=== PATIENT | male | born 1985 | race Caucasian/White ===

== ENCOUNTER 2017-09-02 01:47 | Inpatient (IN) ==
[2017-09-02] MEDS ORDERED: Naloxone 0.4 MG/ML INJ IVP PRN (08:12)
[2017-09-02 08:44] LABS: Basophils % 0.5 %; Eosinophils # 0.2 K/mcL (0.0-0.6); Eosinophils % 2.6 %; Hematocrit 44.1 % (37.5-50.1); Hemoglobin 15.1 g/dL (12.9-16.9); Immature Granulocytes % 0.3 % (0-4); Lymphocytes # 1.3 K/mcL (0.6-4.6); Lymphocytes % 16.2 %; Mean Corpuscular HGB Conc 34.2 g/dL (31.6-35.5); Mean Corpuscular Hemoglobin 31.2 pg (28.0-33.3); Mean Corpuscular Volume 91.1 fL (83.0-100.0); Mean Platelet Volume 10.4 fL (9.4-12.4); Monocytes # 0.6 K/mcL (0.0-1.3); Monocytes % 8.1 %; Neutrophils # 5.7 K/mcL (1.6-8.9); Platelet Count 211 K/mcL (140-400); Red Blood Count 4.84 M/mcL (4.19-5.50); Red Cell Distribution Width 12.2 % (11.5-14.5); Segmented Neutrophils % 72.3 %
[2017-09-02] MEDS ORDERED: Metoprolol XL (24 HR) Succ 50 MG TAB.ER.24H PO SCH (09:00)
[2017-09-02 09:06] LABS: BUN/Creatinine Ratio 15 (6-26); Blood Urea Nitrogen 12 mg/dL (6-20); Calcium 9.1 mg/dL (8.6-10.3); Carbon Dioxide 19 mEq/L (23-29); Chloride 111 mEq/L (98-107); Glucose 121 mg/dL (70-105); Magnesium 2.1 mg/dL (1.6-2.6); Osmolality,Calculated 285 (280-300); Phosphorous 3.2 mg/dL (2.7-4.5); Potassium 4.1 mEq/L (3.5-5.1); Sodium 137 mEq/L (136-145); eGFR For African Americans > 60 (> 60); eGFR For Non-African Americans > 60 (> 60)
--- NOTE | 2017-09-02 09:18 | Internal Med History&Physical ---
Date of Encounter: 09/02/17 Time of Encounter: 09:00 Internal Medicine - H&P: HPI Chief complaint: Purulent drainage from back wound Admitted From: Hospital to Hospital Transfer History of present illness: Mr. Lopez is a 32 year old male who presents with complaints of left lower back pain with wound and purulent drainage. Patient said he had a "fatty tumor" removed from his back about [address] Guzman at [facility]. He was doing well until about 3 days ago when he began to have pain at the surgical site with pus draining from the site as well and that's why he went to the ER at [place]. He denies any fevers any chills or any other acute symptoms. Past Med Surg Social Fam HX - Past Medical History Medical history: hypertension Additional medical history: SMOKER. [id number] SYNDROME Psychiatric history: no psych history - Past Surgical History Surgical History: other Additional surgical history: fatty cysts removed from back x2 - Social History Smoking Status: Current every day smoker Packs per day: 1.5 Smokeless Tobacco Status: No Alcohol use: occasionally Drug use: marijuana - Family History Mother History Unknown: Yes Living Status: Still Living Father Living Status: Cause of : Heart failure Internal Medicine - H&P: Meds Metoprolol Succinate [Toprol Xl] 50 mg PO DAILY 07/31/17 [History] Adhesive Tape [Paper Tape] 1 each TP DAILY #1 tape 09/02/17 [Rx] Polyhexam Biguan/Gauze Bandage [Curity Amd 4"X4" Non-Woven] 2 each TP DAILY #60 sponge 09/02/17 [Rx] Polyhexam Biguan/Gauze Bandage [Curity Amd Packing Strips] 1 each TP DAILY #1 bottle 09/02/17 [Rx] Sulfamethoxazole/Trimeth DS [Bactrim DS] 1 each PO BID #14 tablet 09/02/17 [Rx] 3 Allergy/AdvReac Type Severity Reaction Status Date / Time No Known Allergies Allergy Verified 07/31/17 09:07 All Systems PM: A 10-system review of systems was performed and is negative for pertinent findings except as documented above in the HPI. - Constitutional Constitutional: no chills, no fever(s), no night sweats - EENT Eyes: no change in vision, no discharge, no pain, no photophobia Ears: no ear discharge, no ear pain, no tinnitus Nose, mouth and throat: no dysphagia, no nasal discharge, no neck pain, no sore throat - Cardiovascular Cardiovascular ROS IM: no chest pain, no diaphoresis, no dyspnea, no lightheadedness, no palpitations, no syncope - Respiratory Respiratory: no cough, no dyspnea, no wheezing, no excessive phlegm production - Gastrointestinal Gastrointestinal: no abdominal pain, no diarrhea, no hematemesis, no hematochezia, no melena, no nausea, no vomiting - Musculoskeletal Musculoskeletal ROS IM: no numbness, no tingling - Integumentary Additional comments: pus drainage from back wound - Neurological Neurological ROS: no confusion, no convulsions, no focal weakness, no numbness, no tingling, no tremor(s) - Hematologic/Lymphatic Hematologic/Lymphatic: no easy bruising - Constitutional Vitals: Temp Pulse Resp BP Pulse Ox 98.3 F 70 16 129/64 96 09/02/17 07:31 09/02/17 07:31 09/02/17 07:31 09/02/17 07:31 09/02/17 07:31 - Head Head exam: Present: atraumatic, normocephalic - Eye Eye exam: Present: PERRL, conjuntiva pink, sclera anicteric Pupils: Present: PERRL - Neck Neck exam general surgery: Present: supple, trachea midline. Absent: lymphadenopathy - Respiratory Respiratory exam: Present: CTAB. Absent: accessory muscle use, rales, rhonchi, wheezes - Cardiovascular Cardiovascular exam: Present: RRR, +S1, +S2. Absent: diastolic murmur, gallop, rubs, systolic murmur - GI/Abdominal GI/Abdominal exam: Present: normal bowel sounds, soft, no peritoneal signs. Absent: distended, tenderness - Extremities Exam Extremities exam: Present: warm, radial pulses palpable and symmetrical. Absent : calf tenderness, cyanotic, pedal edema - Back Exam Additional comments: tenderness in left lower back with wound drainage - Neurological Exam Neurological exam: Present: CN II-XII intact, oriented X3, no focal deficits. Absent: pronater drift, facial droop, speech deficit - Skin Skin exam: Present: dry, intact Internal Med - H&P Results - Labs CBC & Chem 7: 09/02/17 08:33 09/02/17 08:33 Labs: Short CBC 09/02/17 Range/Units 08:33 WBC 7.9 (4.3-11.1) K/mcL Hgb 15.1 (12.9-16.9) g/dL Hct 44.1 (37.5-50.1) % Plt Count 211 (140-400) K/mcL Neutrophils # 5.7 (1.6-8.9) K/mcL BMP 09/02/17 08:33 Sodium 137 Potassium 4.1 Chloride 111 H Carbon Dioxide 19 L BUN 12 Creatinine 0.78 Glucose 121 H Calcium 9.1 - Assessment and plan (1) Wound abscess Status: Acute Assessment and plan: s/p fatty tumor removal by surgery. Start on zosyn. Surgery consulted for possible incision and drainage Qualifiers: Encounter type: initial encounter Qualified Code(s): T81.4XXA - Infection following a procedure, initial encounter (2) Hypertension Status: Acute Assessment and plan: Continue home metoprolol Qualifiers: Hypertension type: essential hypertension Qualified Code(s): I10 - Essential (primary) hypertension (3) DVT prophylaxis Status: Acute Assessment and plan: heparin sc - Time Spent With Patient Total time spent is greater than 50% in coordination of care (as documented) at patient's floor/unit and/or counseling patient:
[2017-09-02 11:28] VITALS: BP 135/91
--- NOTE | 2017-09-02 11:46 | General Surgery Consult Note ---
Date of Encounter: 09/02/17 Time of Encounter: 11:39 Assessment and Plan (1) Wound dehiscence Current Visit: Yes Status: Acute His WBC is within normal limits. There is minimal amount of drainage from the surgical site. I did pack the area with 1/4 plain gauze. He will need [facility] for wound packing. OK to d/c from a surgical perspective with [facility] for daily dressing changes. Will cover him with ATBX for cellulitis. He can follow-up with surgery in one week. Surgery will sign off at this time. Thank you for allowing us to participate in Mr Lopez's care. History of Present Illness Consult date: 09/02/17 (Dr. Phil Guzman) Reason for consult: wound care Requesting physician: Jessica Laird History of present illness: Frantz is a 32-year-old male with a history of left lower flank lipoma excision by Dr. Guzman in July 2017. 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 He did not keep his follow-up appointment. He reports that approximately one week after the surgery he began having some swelling of the site but denied discomfort. He states over the last week he began feeling some discomfort at the site, increased redness, and had drainage of cloudy material yesterday when he "squeezed it." He denies fever, chills, abdominal pain, nausea, vomiting, or any other changes in the site. He went to [place] emergency department and was subsequently sent to [place] for evaluation. He reports a past medical history of hypertension, smoking, Alexander Parkinson White syndrome, marijuana use, and occasional alcohol use. Past Med Surg Social Fam HX - Past Medical History Medical history: hypertension Additional medical history: SMOKER. [id number] SYNDROME Psychiatric history: no psych history - Past Surgical History Surgical History: other Additional surgical history: fatty cysts removed from back x2 - Social History Smoking Status: Current every day smoker Packs per day: 1.5 Smokeless Tobacco Status: No Alcohol use: occasionally Drug use: marijuana - Family History Mother History Unknown: Yes Living Status: Still Living Father Living Status: Cause of : Heart failure Medications and Allergies Metoprolol Succinate [Toprol Xl] 50 mg PO DAILY 07/31/17 [History] Adhesive Tape [Paper Tape] 1 each TP DAILY #1 tape 09/02/17 [Rx] Polyhexam Biguan/Gauze Bandage [Curity Amd 4"X4" Non-Woven] 2 each TP DAILY #60 sponge 09/02/17 [Rx] Polyhexam Biguan/Gauze Bandage [Curity Amd Packing Strips] 1 each TP DAILY #1 bottle 09/02/17 [Rx] Sulfamethoxazole/Trimeth DS [Bactrim DS] 1 each PO BID #14 tablet 09/02/17 [Rx] 3 Allergy/AdvReac Type Severity Reaction Status Date / Time No Known Allergies Allergy Verified 07/31/17 09:07 Review of Systems All systems PM: reviewed and no additional remarkable complaints except as stated All systems PM: The remainder of the systems were reviewed and are negative General Surgery Exam Initial Vital Signs Temp Pulse Resp Pulse Ox 98.0 F 69 16 96 09/02/17 04:13 09/02/17 04:13 09/02/17 04:13 09/02/17 04:13 VITAL SIGNS: Reviewed. See [facility] GENERAL: In no apparent distress. HEENT: Normocephalic, atraumatic, pupils are equal and reactive, extraocular motions intact, oropharynx is pink and moist, there is no neck adenopathy or JVD noted. CHEST/RESPIRATORY: The thorax is free from signs of trauma. Lung sounds: clear to auscultation, normal respiratory effort CARDIAC: Regular rate and rhythm. Normal S1 and S2, without murmurs, gallops, or rubs. VASCULAR: No Edema. 2+ peripheral pulses. ABDOMEN: Left posterior flank: small amount of erythema noted along the margins of the incision. There is no surrounding induration. There is one small area that is open approximately the size of a Q-tip. A small amount of thick cloudy material is present. The area was packed with 1/4 inch playing gauze. Covered with a dry dressing. MUSCULOSKELETAL: Good range of motion of all major joints. Extremities without clubbing, cyanosis or edema. NEUROLOGIC EXAM: Alert and oriented x 3. Speech normal. Follows commands. PSYCHIATRIC: Mood normal. SKIN: No rash or lesions. Exam Initial Vital Signs Temp Pulse Resp Pulse Ox 98.0 F 69 16 96 09/02/17 04:13 09/02/17 04:13 09/02/17 04:13 09/02/17 04:13 Results - Labs 09/02/17 08:33 09/02/17 08:33 Abnormal lab results Chloride 111 mEq/L (98-107) H 09/02/17 08:33 Carbon Dioxide 19 mEq/L (23-29) L 09/02/17 08:33 Glucose 121 mg/dL (70-105) H 09/02/17 08:33 Diabetes panel 09/02/17 Range/Units 08:33 Sodium 137 (136-145) mEq/L Potassium 4.1 (3.5-5.1) mEq/L Chloride 111 H (98-107) mEq/L Carbon Dioxide 19 L (23-29) mEq/L BUN 12 (6-20) mg/dL Creatinine 0.78 (0.70-1.30) mg/dL Glucose 121 H (70-105) mg/dL Calcium 9.1 (8.6-10.3) mg/dL Calcium panel 09/02/17 Range/Units 08:33 Calcium 9.1 (8.6-10.3) mg/dL Phosphorus 3.2 (2.7-4.5) mg/dL Pituitary panel 09/02/17 Range/Units 08:33 Sodium 137 (136-145) mEq/L Potassium 4.1 (3.5-5.1) mEq/L Chloride 111 H (98-107) mEq/L Carbon Dioxide 19 L (23-29) mEq/L BUN 12 (6-20) mg/dL Creatinine 0.78 (0.70-1.30) mg/dL Glucose 121 H (70-105) mg/dL Calcium 9.1 (8.6-10.3) mg/dL Adrenal panel 09/02/17 Range/Units 08:33 Sodium 137 (136-145) mEq/L Potassium 4.1 (3.5-5.1) mEq/L Chloride 111 H (98-107) mEq/L Carbon Dioxide 19 L (23-29) mEq/L BUN 12 (6-20) mg/dL Creatinine 0.78 (0.70-1.30) mg/dL Glucose 121 H (70-105) mg/dL Calcium 9.1 (8.6-10.3) mg/dL All other labs normal. Consult Discharge Plan - Plan Additional Instructions: wound care: remove dressing and packing. Wash with antibacterial soap. Repack with 1/4 inch plain gauze for wicking purposes. Tape to secure. May stop packing when less than 1 cm needed or drainage has stopped. Referrals: Shelli Alexander, [facility] [Primary Care Provider] - Prescriptions: Adhesive Tape [Paper Tape] 1 each TP DAILY #1 tape Polyhexam Biguan/Gauze Bandage [Curity Amd 4"X4" Non-Woven] 2 each TP DAILY #60 sponge Polyhexam Biguan/Gauze Bandage [Curity Amd Packing Strips] 1 each TP DAILY #1 bottle Sulfamethoxazole/Trimeth DS [Bactrim DS] 1 each PO BID #14 tablet
--- NOTE | 2017-09-02 14:43 | Discharge Summary ---
Orders not resulted at time of discharge: Pending orders 09/02/17 08:19 Culture,Wound [RM] Routine 09/02/17 08:33 Culture,Blood [BC] Routine 09/03/17 04:00 Basic Metabolic Panel AM 0400 Complete Blood Count [HEME] AM 0400 Magnesium AM 0400 Phosphorous AM 0400 Date of Encounter: 09/02/17 Time of Encounter: 14:20 - Discharge Diagnosis (1) Wound abscess Priority: Primary Status: Acute Assessment and Plan: 32 year old male who presents with complaints of left lower back pain with wound and purulent drainage. Patient said he had a "fatty tumor" removed from his back about [address] Guzman at [facility]. He was doing well until about 3 days ago when he began to have pain at the surgical site with pus draining from the site as well and that's why he went to the ER at [place]. He denied any fevers any chills or any other acute symptoms He was seen by general surgery who did some packing and prescribed him oral antibiotics for the cellulitis. He was therefore discharged in a stable condition and will follow up outpatient with surgery Qualifiers: Encounter type: initial encounter Qualified Code(s): T81.4XXA - Infection following a procedure, initial encounter (2) Hypertension Priority: Secondary Status: Acute Qualifiers: Qualified Code(s): I10 - Essential (primary) hypertension (3) DVT prophylaxis Priority: Secondary Status: Acute Hospital course: Mr. Lopez is a 32 year old male - Time Spent with Patient Total time spent providing and/or coordinating discharge services: - Discharge Medications Prescriptions: Adhesive Tape [Paper Tape] 1 each TP DAILY #1 tape Polyhexam Biguan/Gauze Bandage [Curity Amd 4"X4" Non-Woven] 2 each TP DAILY #60 sponge Polyhexam Biguan/Gauze Bandage [Curity Amd Packing Strips] 1 each TP DAILY #1 bottle Sulfamethoxazole/Trimeth DS [Bactrim DS] 1 each PO BID #14 tablet Home Medications: Metoprolol Succinate [Toprol Xl] 50 mg PO DAILY 07/31/17 [History] Adhesive Tape [Paper Tape] 1 each TP DAILY #1 tape 09/02/17 [Rx] Polyhexam Biguan/Gauze Bandage [Curity Amd 4"X4" Non-Woven] 2 each TP DAILY #60 sponge 09/02/17 [Rx] Polyhexam Biguan/Gauze Bandage [Curity Amd Packing Strips] 1 each TP DAILY #1 bottle 09/02/17 [Rx] Sulfamethoxazole/Trimeth DS [Bactrim DS] 1 each PO BID #14 tablet 09/02/17 [Rx] Allergies/Adverse Reactions: 3 Allergy/AdvReac Type Severity Reaction Status Date / Time No Known Allergies Allergy Verified 07/31/17 09:07 Date of admission: 09/02/17 08:13 Primary care physician: Shelli Alexander CNP Consults: 09/02/17 08:18 Consult to Surgery [CONS] Routine Consulting Provider: Surgery [facility] Reason for Consult: infected wound s/p tumor removal Call Completed: Yes 09/02/17 11:39 Consult to Material Scheduler [CONS] Stat Reason for SW Consult: home health for packing - Constitutional Vitals: Temp Pulse Resp BP Pulse Ox 98.3 F 66 16 135/91 98 09/02/17 11:25 09/02/17 11:25 09/02/17 11:25 09/02/17 11:25 09/02/17 11:25 - Patient Status Disposition: Home, Self-Care - Discharge Instructions Follow Up With: Shelli Alexander CNP [Primary Care Provider] - Yoselyn Carpio CNP [Advanced Practice Nurse] - 09/09/17 3:30 pm Additional Instructions: wound care: remove dressing and packing. Wash with antibacterial soap. Repack with 1/4 inch plain gauze for wicking purposes. Tape to secure. May stop packing when less than 1 cm needed or drainage has stopped.
--- NOTE | 2017-09-02 14:44 | Physician Discharge Referral ---
Home Health/Hosp Referral Info Transfer to: Home Health - Diagnosis (1) Wound abscess Priority: Primary Status: Acute (2) Hypertension Status: Acute (3) DVT prophylaxis Status: Acute - Respiratory Orders Smoking Cessation: Smoking cessation has been advised. For more information, call the [place] Tobacco Quit Line at 2-160-TGEM-NOW. - Transfer Medications Prescriptions: Adhesive Tape [Paper Tape] 1 each TP DAILY #1 tape Polyhexam Biguan/Gauze Bandage [Curity Amd 4"X4" Non-Woven] 2 each TP DAILY #60 sponge Polyhexam Biguan/Gauze Bandage [Curity Amd Packing Strips] 1 each TP DAILY #1 bottle Sulfamethoxazole/Trimeth DS [Bactrim DS] 1 each PO BID #14 tablet Home Medications: Metoprolol Succinate [Toprol Xl] 50 mg PO DAILY 07/31/17 [History] Adhesive Tape [Paper Tape] 1 each TP DAILY #1 tape 09/02/17 [Rx] Polyhexam Biguan/Gauze Bandage [Curity Amd 4"X4" Non-Woven] 2 each TP DAILY #60 sponge 09/02/17 [Rx] Polyhexam Biguan/Gauze Bandage [Curity Amd Packing Strips] 1 each TP DAILY #1 bottle 09/02/17 [Rx] Sulfamethoxazole/Trimeth DS [Bactrim DS] 1 each PO BID #14 tablet 09/02/17 [Rx] Allergies/Adverse Reactions: 3 Allergy/AdvReac Type Severity Reaction Status Date / Time No Known Allergies Allergy Verified 07/31/17 09:07 Certification: Further, I certify that my clinical findings support that this patient is homebound (i.e. absences from home require considerable and taxing effort and are for medical reasons or spiritism services or infrequently or short duration when for other reasons) because: Homebound Reason: Patient requires assistance of a person or device to safely leave home Attestation: My signature below is to certify that this patient is under my care and that I, or nurse practitioner, or a physician's executive staff assistant working with me, has a face-to -face encounter with this patient.
[2017-09-02] MEDS ORDERED: Piperacillin/Tazobactam 3.375 GM in 0.9 % Sodium Chloride Mini Bag 100 ML IVPB SCH (16:00)
[2017-09-02] MEDS ORDERED: *HR* Heparin 5,000 UNIT/ML VIAL SQ SCH (18:00)
== END 2017-09-02 15:05 | disposition home or self-care (01) | DRG 721 ==
LOC: 3BNU
PROVIDERS: ADMIT Internal Medicine Nephrology; ATTEND Internal Medicine Nephrology